=== PATIENT | male | born 1995 ===

== ENCOUNTER 2020-02-08 06:32 | Emergency (ER) | payer BC, OTHER ==
--- NOTE | 2020-02-08 07:33 | RAD ---
CHEST 1 VIEW: Date: 02/08/2020 INDICATION: Chest pain and chest tightness. COMPARISON: None. FINDINGS: Lungs are clear. Heart size is normal. No acute osseous abnormality is evident. IMPRESSION: No acute cardiopulmonary abnormality. POS: [facility]
== END 2020-02-08 07:00 | disposition home or self-care (01) ==
LOC: ERS 06:32
DX: R07.9 Chest pain, unspecified (principal)
CPT/HCPCS: 71045; 93005